=== PATIENT | female | born 1995 | race Caucasian/White ===

== ENCOUNTER 2017-08-05 14:25 | Emergency (ER) | payer OTHER ==
[~2017-08-05] VITALS: Ht 162.6 cm; Wt 63.0 kg
[2017-08-05 14:44] VITALS: BP 109/70
== END 2017-08-05 18:30 | disposition left against medical advice (07) ==
LOC: ER 15:03
DX: N93.9 Abnormal uterine and vaginal bleeding, unspecified (principal); Z53.21 Procedure and treatment not carried out due to patient leaving prior to being seen by health care provider